=== PATIENT | male | born 1950 | race Caucasian/White ===

== ENCOUNTER 2018-09-12 09:21 | Emergency (ER) | payer OTHER ==
[2018-09-12 09:32] VITALS: BP 132/83; TEMP 97.3; BMI 35.6
--- NOTE | 2018-09-12 09:59 | ED.PDOC ---
General ED Provider: Dr. CHONG PANTOJA Chief Complaint: Fall Stated Complaint: fall Time Seen by Physician: 09:30 Mode of Arrival: Walk-In Information Source: Patient Exam Limitations: No limitations Nursing and Triage Documentation Reviewed and Agree: Yes Does patient meet sepsis criteria?: No System Inflammatory Response Syndrome: Not Applicable Sepsis Protocol: For patient's 13 years and over: Temp is 96.8 and below OR 101 and greater Pulse >90 BPM Resp >20/minute Acutely Altered Mental Status Are patient's symptoms suggestive of a new infection, such as: -Pneumonia -Skin, Soft Tissue -Endocarditis -UTI -Bone, Joint Infection -Implantable Device -Acute Abdominal Infection -Wound Infection -Meningitis -Blood Stream Catheter Infection -Unknown Trauma/Injury Complaint Exam - Trauma Complaint/Exam Location of Pain or Injury: Reports: LUE (shoulder ), Back (lumbar), Other ( left hip ambulatory x 10 days since onset) Mechanism of Injury: Reports: Fall Onset/Duration: fall 10 days ago no neck or thoracic back pain Symptoms Are: Still present Timing of Treatment: Delayed Initial Severity: Moderate Current Severity: Moderate Character: Reports: Dull Aggravating: Reports: Movement (of left shoulder ) Associated Signs and Symptoms: Denies: LOC, Confusion, Memory loss, Lethargy, Vomiting, Bleeding, Bruising, Swelling, Extremity disuse, Painful respiration, Hoarseness, Dysphagia, Hemoptysis, Significant blood loss Related History: Reports: Similar episode Penetrating Injury Risk Factors: Reports: None Related Surgical History: Reports: None Nexus Low Risk Criteria: No post-midline CS tender, No evidence of intoxicat., No Altered LOC, No focal neuro deficit, No distracting injuries Immobilization Removed Post Exam: No Glascow Coma Scale (see protocol): 15 Trauma Findings: Absent: [place] eyes, Nasal deformity, Dental tenderness, Dental injury, Crepitus, Airway obstructed, Trachea displaced, Labored respirations, Decreased breath sounds, Pelvic instability Differential Diagnoses: Fracture, Sprain, Strain Review of Systems - Review Of Systems Constitutional: Reports: No symptoms Eyes: Reports: No symptoms Ears, Nose, Mouth, Throat: Reports: No symptoms Respiratory: Reports: No symptoms Cardiac: Reports: No symptoms GI: Reports: No symptoms : Reports: No symptoms Musculoskeletal: Reports: Back pain (lumbar pain no neck pain ) Skin: Reports: No symptoms Neurological: Reports: No symptoms Endocrine: Reports: No symptoms Hematologic/Lymphatic: Reports: No symptoms All Other Systems: Reviewed and Negative Past Medical History - Past Medical History Previously Healthy: Yes Endocrine: Reports: DM 2 Cardiovascular: Reports: Hypertension Respiratory: Reports: None Hematological: Reports: None Gastrointestinal: Reports: None Genitourinary: Reports: None Neuro/Psych: Reports: None Musculoskeletal: Reports: None Cancer: Reports: None - Surgical History General Surgical History: Reports: None - Family History Family History: Reports: None - Social History Smoking Status: Never smoker Hx Substance Use: No Alcohol Screening: Occasionally Physical Exam - Physical Exam Appearance: Well-appearing, No pain distress, Well-nourished Eyes: [place], EOMI, Conjunctiva clear ENT: Ears normal, Nose normal, Oropharynx normal Respiratory: Airway patent, Breath sounds clear, Breath sounds equal, Respirations nonlabored Cardiovascular: RRR, Pulses normal, No rub, No murmur GI/: Soft, Nontender, No masses, Bowel sounds normal, No Organomegaly Musculoskeletal: Limited ROM (left shoulder ) Skin: Warm, Dry, Normal color Neurological: Sensation intact, Motor intact, Reflexes intact, Cranial nerves intact, Alert, Oriented Psychiatric: Affect appropriate, Mood appropriate Critical Care Note - Critical Care Note Total Time (mins): 0 Course - Course Orders, Labs, Meds: Orders Category Date Time Status HIP, LEFT 2 VIEWS Stat RADS 09/12/18 09:56 Ordered LUMBAR SPINE, MIN 4 VIEWS Stat RADS 09/12/18 09:57 Ordered PELVIS 1 OR 2 VIEWS Stat RADS 09/12/18 09:55 Ordered SHOULDER, LEFT MIN 2V Stat RADS 09/12/18 09:55 Ordered Vital Signs: Temp Pulse Resp BP Pulse Ox 09/12/18 09:23 97.3 F L 70 20 132/83 95 Departure - Departure Time of Disposition: 11:00 Disposition: HOME SELF-CARE Discharge Problem: Shoulder pain, left Qualifiers: Chronicity: chronic Qualified Code(s): M25.512 - Pain in left shoulder; G89.29 - Other chronic pain Instructions: Cervical Strain (DC) Condition: Good Pt referred to PMD for follow-up: Yes IPMP verified?: No Additional Instructions: Please call your Family Physician as soon as possible to schedule a follow-up appointment. Allergies/Adverse Reactions: Allergies No Known Allergies Allergy (Unverified 09/12/18 09:32) Home Medications: Ambulatory Orders Allopurinol [Zyloprim] 300 mg PO BEDTIME 09/12/18 Amlodipine Besylate [Norvasc] 10 mg PO DAILY 09/12/18 Aspirin [Aspir-Low] 81 mg PO BEDTIME 09/12/18 Atenolol 25 mg PO DAILY 09/12/18 Gabapentin [Neurontin] 300 mg PO BEDTIME 09/12/18 Lisinopril [Zestril] 40 mg PO DAILY 09/12/18 Prednisone 20 mg PO BEDTIME PRN 09/12/18 Simvastatin 20 mg PO BEDTIME 09/12/18 Triamcinolone/Emollient Comb86 [Dermasorb Ta 0.1% Complete Kit] 340.4 gm TP DIRECTED PRN 09/12/18
--- NOTE | 2018-09-12 10:28 | DI ---
EXAM: Five views of the lumbar spine HISTORY: Fall. COMPARISON: None FINDINGS: There is no acute compression fracture or subluxation. There is minimal anterior disc oste ophytes. There is mild facet arthropathy. Lumbosacral junction is intact. Soft tissues are unremar kable. IMPRESSION: Mild degenerative disease of the lumbosacral spine.
--- NOTE | 2018-09-12 10:29 | DI ---
EXAM: LEFT SHOULDER HISTORY: Fall FINDINGS: Left shoulder three-view. Bone and joint structures are within normal limits. There is n o joint dislocation or fracture identified. Bone density and soft tissues are unremarkable. IMPRESSION: No fracture or dislocation.
--- NOTE | 2018-09-12 10:31 | DI ---
EXAM: LEFT HIP, 2 VIEWS HISTORY: Fall, hip pain FINDINGS: No fracture or joint dislocation. Articular cartilage width is within normal limits for age. Bone density appears normal. Vascular calcifications are seen. IMPRESSION: 1. No fracture or dislocation.
--- NOTE | 2018-09-12 10:31 | DI ---
EXAM: Single view of the pelvis HISTORY: Fall. COMPARISON: Same day left hip x-ray FINDINGS: Pelvic ring is intact. Pubic symphysis and sacroiliac joints are normal. The hips demonst rate mild degenerative change. There is no lytic or blastic lesion. The soft tissues are unremarkab le. IMPRESSION: No displaced fracture of the pelvis. The left hip is better evaluated on same day left hand x-rays.
--- NOTE | 2018-09-12 10:48 | CT ---
EXAM: CT cervical spine without contrast. HISTORY: Neck pain after fall on ice COMPARISON: None TECHNIQUE: Serial axial images of the cervical spine were obtained from the skull base through the l hardeep apices without contrast. These were viewed in multiple planes. FINDINGS: Vertebral bodies demonstrate straightening of the cervical spine. There is no acute compr ession fracture. There is disc space narrowing and osteophyte formation at C6-C7. There is mild fac et arthropathy. The odontoid process is unremarkable with degenerative change at its articulation wi th the anterior aspect of C1. The soft tissues are unremarkable. IMPRESSION: 1. No acute compression fracture or subluxation of the cervical spine. 2. Scattered degenerative disease of the cervical spine most pronounced at C6-C7.
== END 2018-09-12 11:10 | disposition home or self-care (01) ==
LOC: ED 09:21
DX: M25.512 Pain in left shoulder (principal); G89.29 Other chronic pain; M54.5 Low back pain; M25.552 Pain in left hip; W19.XXXA Unspecified fall, initial encounter
CPT/HCPCS: 99283

== ENCOUNTER 2018-11-07 11:42 | Outpatient (CLI) ==
[2018-09-15 14:23] VITALS: BMI 35.6
== END 2018-11-07 11:43 | disposition home or self-care (01) ==
LOC: RHC-LAB 11:42
PROVIDERS: ATTEND Family Medicine
DX: Z11.59 Encounter for screening for other viral diseases (principal); E55.9 Vitamin D deficiency, unspecified
CPT/HCPCS: 36415; 82306; 86803